=== PATIENT | male | born 1965 | race Two or more races ===

== ENCOUNTER 2021-09-12 09:55 | Outpatient (CLI) | payer OTHER | END 2021-09-12 10:05 | disposition home or self-care (01) | LOC: SONOGRAMA 09:55 | PROVIDERS: ATTEND Internal Medicine Hematology & Oncology | DX: E04.2 Nontoxic multinodular goiter (principal) ==

== ENCOUNTER 2021-09-12 11:08 | Outpatient (CLI) | payer OTHER | END 2021-09-12 11:10 | disposition home or self-care (01) | LOC: LAB 11:08 | PROVIDERS: ATTEND Internal Medicine Hematology & Oncology | DX: D50.8 Other iron deficiency anemias (principal); I10 Essential (primary) hypertension; R74.02 Elevation of levels of lactic acid dehydrogenase [LDH]; D55.0 Anemia due to glucose-6-phosphate dehydrogenase [G6PD] deficiency; E55.9 Vitamin D deficiency, unspecified; D63.1 Anemia in chronic kidney disease; E03.8 Other specified hypothyroidism; E06.3 Autoimmune thyroiditis; R97.0 Elevated carcinoembryonic antigen [CEA]; R97.8 Other abnormal tumor markers; R97.20 Elevated prostate specific antigen [PSA]; D51.3 Other dietary vitamin B12 deficiency anemia; E78.2 Mixed hyperlipidemia; K57.30 Diverticulosis of large intestine without perforation or abscess without bleeding; R79.9 Abnormal finding of blood chemistry, unspecified; K76.89 Other specified diseases of liver; D63.8 Anemia in other chronic diseases classified elsewhere; D51.1 Vitamin B12 deficiency anemia due to selective vitamin B12 malabsorption with proteinuria ==